=== PATIENT | male | born 1970 | race Caucasian/White ===

== ENCOUNTER 2018-09-11 11:51 | Emergency (ER) | payer OTHER ==
[2018-09-11 12:02] VITALS: BP 141/108
--- NOTE | 2018-09-11 12:41 | ED Physician Documentation ---
History of Present Illness - Stated complaint Stated Complaint: R INDEX FINGER RED/SORE/SWOLLEN - Chief complaint Chief Complaint: Ext Problem - History obtained from History obtained from: Patient - History of Present Illness Timing: Other (3 days of a painful right index finger, With swelling. It hurts especially at night. No drainage. 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 [employer] - Past Surgical History Past Surgical History: No - Present Medications Home Medications: Ambulatory Orders Medication Instructions Recorded Confirmed Amox/Clav 875/125 [Augmentin] 1 each PO Q12H #20 tablet 09/11/18 Hydrocodone/Acetaminophen 1 - 2 each PO Q6H PRN #10 tablet 09/11/18 [Hydrocodon-Acetaminophen 5-325] Losartan [Cozaar] 100 mg PO DAILY 09/11/18 09/11/18 amLODIPine [Norvasc] 10 mg PO DAILY 09/11/18 09/11/18 hydroCHLOROthiazide 25 mg PO DAILY 09/11/18 09/11/18 [Hydrochlorothiazide] - Allergies Allergies/Adverse Reactions: Allergies Allergy/AdvReac Type Severity Reaction Status Date / Time No Known Drug Allergies Allergy Verified 09/11/18 12:01 - Social History Does the pt smoke?: No Smoking Status: Never smoker Does the pt drink ETOH?: Yes Does the pt have substance abuse?: No - Immunizations Immunizations are current?: Yes PD ED PE NORMAL - Vitals Vital signs reviewed: Yes - General General: Alert and oriented X 3, No acute distress - Extremities Extremities: Other (There is a paronychia of the right index finger mostly on the radial side but also kind of comes around the ulnar side as well.) Results - Vitals Vitals: Vital Signs - 24 hr 09/11/18 11:59 Temperature 36.5 C Heart Rate 61 Respiratory 18 Rate Blood Pressure 141/108 H O2 Saturation 97 Oxygen O2 Source Room air Procedures - Abscess I&D (location) Right index finger paronychia Preparation: Betadine Incision: Incised with scalpel, Purulent drainage, Culture obtained Other: Pt tolerated well, Dressing applied, Antibiotic prescribed Departure - Departure Disposition: Home, Self Care Clinical Impression: Paronychia of finger of right hand Condition: Good Record reviewed to determine appropriate education?: Yes Instructions: ED Fingernail Infec Prescriptions: Amox/Clav 875/125 [Augmentin] 1 each PO Q12H #20 tablet Hydrocodone/Acetaminophen [Hydrocodon-Acetaminophen 5-325] 1 - 2 each PO Q6H PRN #10 tablet PRN Reason: pain Comments: We are performing a wound culture, the results should be done in 48-72 hours. If antibiotic change is necessary we will call you. Return if worse in the meantime, especially if you develop increased pain, fevers, cannot keep down the medication. Otherwise follow-up with your physician in approximately 2-3 days. Your blood pressure was elevated today on check into the emergency department. This does not mean that you have hypertension, it is a common phenomenon to come to the emergency department and have elevated blood pressure. I recommend that you see your primary care physician within the week to have it rechecked when you are feeling better.
== END 2018-09-11 12:45 | disposition home or self-care (01) ==
LOC: ED 11:51
DX: L03.011 Cellulitis of right finger (principal); I10 Essential (primary) hypertension
CPT/HCPCS: 26010; 87070; 87077; 87181; 87205; 99283